=== PATIENT | female | born 2000 | race Caucasian/White ===

== ENCOUNTER 2018-04-12 21:34 | Emergency (ER) | payer BC ==
--- NOTE | 2018-04-12 21:55 | EDPHY ---
General Time Seen by Provider: 04/12/18 21:51 Narrative: CLINICAL IMPRESSION: Intermittent vaginal bleeding after intercourse, intermittent leg spasms ASSESSMENT/PLAN: 18-year-old female presents to the emergency department with complaints of intermittent vaginal bleeding after intercourse as well as intermittent leg spasms x1 year. Patient is scheduled to see an OBGYN for an initial appointment on April 24. She is on continuous control. She had STD testing approximately 3 months ago and has not had a new partner since that time. Pelvic exam today shows thick yellow discharge with mild friability to the cervix without evidence of cervical polyp or obvious dysplasia however this patient has never had a formal Pap smear. No cervical motion tenderness or adnexal discomfort to suggest PID. STD testing pending. Wet prep testing pending. Urine shows no sign of infection and patient is not . No evidence of electrolyte imbalance to explain intermittent leg cramps. Abdomen soft with no focal peritoneal findings. Vital signs stable. Patient will call tomorrow for STD and wet prep test. I encouraged her to keep her OBGYN appointment and encouraged Pap smear. Warning signs for return to emergency department sooner outlined and discharge. DIFFERENTIAL DX: Abdominal pain includes but not limited to urinary tract infection, pyelonephritis, infection, ectopic , salpingitis, TOA, ovarian torsion, ovarian cyst, endometriosis, uterine fibroids, acute appendicitis, acute diverticulitis, small-bowel obstruction, constipation ED PROCEDURES: See lab and/or imaging results below ED COURSE: CHIEF COMPLAINT: Bleeding after intercourse, 1 year of bilateral leg cramping intermittently, "my kidneys hurt", " I think I am getting strep. HPI: 18-year-old female presents to the emergency department with multiple complaints. First patient reports she has had some intermittent vaginal bleeding after intercourse for the last 3 weeks. She also reports 1 year of intermittent leg spasms. She reports having STD tests approximately 3 months ago and has not had a new partner since that time. She is on continuous control and denies . She reports no fever, chills, nausea, vomiting or diarrhea. No UTI symptoms. She is having some yellowish vaginal discharge. No complaints of flank pain. She is also concerned she may be getting strep throat. She is scheduled to see an OBGYN on April 24. She has never had a formal Pap smear PAST MEDICAL HISTORY: See nurse triage note See nurse/triage notes for additional history if applicable Pertinent Past Surgical History: None reported Family History: Noncontributing Social History: See nurse triage note REVIEW OF SYSTEMS: All other systems negative Constitutional: No fever, no chills, appetite change. ENT: Positive for sore throat, congestion, ear pain. Cardiovascular: No chest pain, no palpitations. Respiratory: No cough, no shortness of breath. Gastrointestinal: No abdominal pain, no vomiting, diarrhea. Genitourinary: No hematuria, dysuria, flank pain, pelvic pain, positive for intermittent vaginal bleeding and discharge Musculoskeletal: No back pain, joint swelling, joint pain, myalgias. Skin: No rashes, color change. Neurological: No headache, dizziness, weakness. PHYSICAL EXAM: General Appearance: Alert, oriented, appropriate, cooperative, NAD, well hydrated, non-toxic appearing, VSS, no hypoxia. HEENT: TMs are clear bilaterally no perforation or FB, no injection, no evidence of serous or mucopurulent otitis. Oropharynx clear is no erythema or exudates, no tonsillar hypertrophy or asymmetry. Dentition without abnormality. Neck: Supple, nontender, no lymphadenopathy, no midline pain, FROM, no meningismus. Respiratory: There are no retractions, lungs are clear to auscultation. Cardiac: Regular rate and rhythm, no murmurs or gallops. Gastrointestinal: Abdomen is soft, nontender, bowel sounds normal, no masses/ hernia, no rigidity, guarding or focal peritoneal findings. : Copious yellow discharge noted in vaginal canal. No vaginal laceration or cervical laceration. Mild cervical friability versus contusion noted with no active bleeding. No cervical polyp identified. No cervical motion tenderness or adnexal pain or mass. Neurological: [ Alert and oriented x 3 Skin: Warm, dry, no rashes, no nodules on palpation. MEDICAL DECISION MAKING: Patient was seen independently. Secondary supervising physician at time of evaluation was Dr. Parrish. Diagnosis: Intermittent vaginal bleeding, intermittent leg cramps. New, requires workup Summary: See Assessment and Plan for summary of ED visit Clinical lab tests: ordered / reviewed. Independent visualization of images, tracing, or specimens: None ordered. Patient Progress: Stable for discharge. - History Smoking Status: Never smoked - Objective Vital Signs: Initial Vital Signs Temperature (C) 36.7 C 04/12/18 21:38 Heart Rate 99 04/12/18 21:38 Respiratory Rate 18 04/12/18 21:38 Blood Pressure 130/80 H 04/12/18 21:38 O2 Sat (%) 97 04/12/18 21:38 O2 Delivery Mode Room Air Allergies/Adverse Reactions: divalproex sodium [From Depakote] Allergy (Verified 04/12/18 21:42) risperidone [From Risperdal] Allergy (Verified 04/12/18 21:42) Sulfa (Sulfonamide Antibiotics) Allergy (Verified 04/12/18 21:42) ziprasidone [From Geodon] Allergy (Verified 04/12/18 21:42) Home Medications: Medication Instructions Recorded Albuterol Hfa Anes Only [Proair 2 puffs IH QID 04/12/18 Hfa Icu (*)] Laboratory Results: 04/12/18 04/12/18 04/12/18 23:20 23:20 23:18 POC Hgb 14.6 gm/dL gm/dL (12.6-16.3) POC Hct 43 % % (38-47) POC Sodium 140 mEq/L mEq/L (135-145) POC Potassium 3.7 mEq/L mEq/L (3.3-5.0) POC Chloride 104 mEq/L mEq/L (97-110) POC Total CO2 21 mEq/L L mEq/L (22-31) POC BUN 9 mg/dL mg/dL (7-23) POC Creatinine 0.6 mg/dL mg/dL (0.6-1.0) POC Glucose 120 mg/dL H mg/dL (70-100) Urine Color Urine Appearance Urine pH Ur Specific Thelma Urine Protein Urine Ketones Urine Blood Urine Nitrate Urine Bilirubin Urine Urobilinogen Ur Leukocyte Esterase Urine Glucose Urine Test Trichomonas (Wet Prep) RARE WBC H C.trachomatis RNA (TMA) Pending 04/12/18 04/12/18 22:15 22:15 POC Hgb POC Hct POC Sodium POC Potassium POC Chloride POC Total CO2 POC BUN POC Creatinine POC Glucose Urine Color YELLOW Urine Appearance CLEAR Urine pH 6.0 (5.0-7.5) Ur Specific Thelma 1.019 (1.002-1.030) Urine Protein NEGATIVE (NEGATIVE) Urine Ketones NEGATIVE (NEGATIVE) Urine Blood NEGATIVE (NEGATIVE) Urine Nitrate NEGATIVE (NEGATIVE) Urine Bilirubin NEGATIVE (NEGATIVE) Urine Urobilinogen NEGATIVE EU EU (0.2-1.0) Ur Leukocyte Esterase NEGATIVE (NEGATIVE) Urine Glucose NEGATIVE (NEGATIVE) Urine Test NEGATIVE Trichomonas (Wet Prep) C.trachomatis RNA (TMA) Point of Care Test Results: Chemistry 04/12/18 23:18 POC Sodium 140 mEq/L mEq/L (135-145) POC Potassium 3.7 mEq/L mEq/L (3.3-5.0) POC Chloride 104 mEq/L mEq/L (97-110) POC Total CO2 21 mEq/L L mEq/L (22-31) POC BUN 9 mg/dL mg/dL (7-23) POC Creatinine 0.6 mg/dL mg/dL (0.6-1.0) POC Glucose 120 mg/dL H mg/dL (70-100) ISTAT H&H 04/12/18 23:18 POC Hgb 14.6 gm/dL gm/dL (12.6-16.3) POC Hct 43 % % (38-47) Departure - Departure Disposition: Home, Routine, Self-Care Clinical Impression: Vaginal bleeding, Leg cramping Condition: Good Instructions: Dysfunctional Uterine Bleeding (ED) Additional Instructions: DISCHARGE INSTRUCTIONS FROM YOUR DOCTOR Thank you for visiting our emergency department today. You were treated by a physician restaurant assistant manager today and your case was reviewed with our ED Attending physician. Please keep in mind that discharge from the emergency department does not mean that there is nothing wrong - it simply means that we have not identified an emergency condition that requires further evaluation or treatment in the hospital. You should always plan to follow up with primary care for re- evaluation of your condition in the next 2-3 days. If you have been referred to a specialist, please call as soon as possible (today or tomorrow) to schedule your follow up appointment at the appropriate time. URINE DID NOT APPEAR INFECTED. URINE WAS NEGATIVE. WET PREP AND STD TESTS ARE NOT AVAILABLE THIS EVENING, PLEASE CALL TOMORROW FOR RESULTS. PLEASE KEEP YOUR APPOINTMENT THIS WEEK WITH OBGYN. YOU NEED TO HAVE A FORMAL PAP SMEAR. LAB WORK WAS REASSURING WITH NO ELECTROLYTE IMBALANCE. PLEASE CONSIDER TAKING A MULTI-VITAMIN DAILY AND STAY VERY WELL HYDRATED. RETURN TO THE EMERGENCY DEPARTMENT FOR SEVERE LOWER ABDOMINAL PAIN, FEVER, CHILLS, NAUSEA , VOMITING, OR ANY OTHER CONCERNS. People present with illnesses and injuries in different ways, and it is always possible that we have missed something. You may always return for re-evaluation if symptoms worsen or if they are not improving or if you develop new/different symptoms. Again, thank you for choosing our emergency department. We hope that you feel better. Referrals: NONE *PRIMARY CARE P,. [Primary Care Provider] - As per Instructions Adriana Alcaraz DO [Doctor of Osteopathy] - As per Instructions
[2018-04-12 23:51] VITALS: BP 100/74
== END 2018-04-12 23:51 | disposition home or self-care (01) ==
DX: N93.0 Postcoital and contact bleeding (principal); R25.2 Cramp and spasm
CPT/HCPCS: 82435-PO; 82565-PO; 82947-PO; 84132-PO; 84295-PO; 84520-PO; 85014-ER

== ENCOUNTER 2018-06-26 09:51 | Emergency (ER) | payer BC ==
[2018-06-26] MEDS ORDERED: NS 1,000 ML IV ONE (10:17)
--- NOTE | 2018-06-26 10:22 | EDPHY ---
General - History Smoking Status: Current every day smoker Time Seen by Provider: 06/26/18 10:02 Narrative: CLINICAL IMPRESSION: Urinary tract infection, hematuria ASSESSMENT/PLAN: 18-year-old female presents to the emergency department with 1 week of intermittent dysuria, bilateral flank pain and nausea and vomiting. Clinically , patient does not appear severely dehydrated, abdomen is soft without focal peritoneal findings. Urine does show hematuria and trace bacteriuria with no pyuria. Urine culture was apparently ordered by Urgent Care 2 days ago and repeat culture was not obtained today. Labs are otherwise reassuring, with mild leukocytosis, no renal insufficiency, electrolyte imbalance or metabolic disturbance. Patient was changed from Augmentin which was prescribed by Urgent Care to Keflex. She was feeling better after a L of IV fluids and antiemetics. She was able to keep water down. I encouraged PCP follow-up for repeat urine studies to ensure resolution of infection and hematuria. Low threshold for return to ED sooner as discussed in person and discharge papers. DIFFERENTIAL DX: Abdominal pain includes but not limited to urinary tract infection, pyelonephritis, infection, ectopic , salpingitis, TOA, ovarian torsion, ovarian cyst, endometriosis, uterine fibroids, acute appendicitis, acute diverticulitis, small-bowel obstruction, constipation, dehydration ED PROCEDURES: See lab and/or imaging results below ED COURSE: Seen and evaluated 10:15. Plan for IV, fluid bolus and labs and urine studies 11:30 a.m.: Labs reviewed with patient. Vital stable, afebrile. No signs of urosepsis. Low suspicion for pyelonephritis. Will change to cephalexin. Initial dose given in the ED, prescription provided. Strongly emphasized importance of PCP follow-up and repeat urine studies to ensure clearance of hematuria. Patient understands this. PCP referral given. CHIEF COMPLAINT: Pyelonephritis, nausea vomiting abdominal pain HPI: 18-year-old female presents to the emergency department with 1 week of intermittent dysuria, urgency, bilateral flank pain, intermittent nausea, vomiting diarrhea and generalized lower abdominal pain. Patient reports she was seen at [facility] yesterday in [place], stated according to urine studies that she had pyelonephritis and was started on Augmentin. She took 1 dose of this. She reports tactile fevers in the middle the night, nausea with 1 episode of vomiting this morning, and persistent generalized abdominal discomfort and flank pain. She admits that she always has some flank pain and does not drink much water but has been trying to drink more water since her diagnosis. She is sexually active, on control, compliant with this, and denies any discharge or . No concern for STDs. No upper abdominal pain or hematemesis. No history of chronic UTI or pyelonephritis. PAST MEDICAL HISTORY: Intermittent asthma See nurse/triage notes for additional history if applicable Pertinent Past Surgical History: Cholecystectomy Significant other at bedside REVIEW OF SYSTEMS: All other systems negative Constitutional: Positive for subjective fever, no chills, positive for appetite change.] Cardiovascular: No chest pain, no palpitations. Respiratory: No cough, no shortness of breath. Gastrointestinal: Positive for generalized lower abdominal pain, nausea, vomiting, diarrhea.] Genitourinary: No hematuria, positive for dysuria, positive for bilateral flank pain, denies pelvic pain PHYSICAL EXAM: General Appearance: Alert, oriented, appropriate, cooperative, very thin, lying comfortably in the bed, NAD, well hydrated, non-toxic appearing, VSS, no hypoxia. Afebrile HEENT: Oropharynx clear is no erythema or exudates, no tonsillar hypertrophy or asymmetry. Moist mucous membranes, no evidence of dehydration Respiratory: There are no retractions, lungs are clear to auscultation. Cardiac: Regular rate and rhythm, no murmurs or gallops. Gastrointestinal: Abdomen is soft, mild generalized lower abdominal discomfort to palpation, bowel sounds normal, no masses/hernia, no rigidity, guarding or focal peritoneal findings. exam declined Neurological: [ Alert and oriented x 3 Skin: Warm, dry, no rashes, no nodules on palpation. MEDICAL DECISION MAKING: Patient was seen independently. Secondary supervising physician at time of evaluation was Dr. Pina. Diagnosis: Urinary tract infection, hematuria. New, requires workup Summary: See Assessment and Plan for summary of ED visit Clinical lab tests: ordered / reviewed. Patient Progress: Stable for discharge . (Sigifredo Carmichael) Medical Decision Making: I did not see this patient while she was in the emergency department. However her care was discussed with the PA while the patient was in the department. I agree with treatment plan and management (Sai Pina) - Objective Vital Signs: Initial Vital Signs Temperature (C) 36.6 C 06/26/18 09:55 Heart Rate 94 06/26/18 09:55 Respiratory Rate 16 06/26/18 09:55 Blood Pressure 122/70 H 06/26/18 09:55 O2 Sat (%) 97 06/26/18 09:55 O2 Delivery Mode Room Air Allergies/Adverse Reactions: divalproex sodium [From Depakote] Allergy (Verified 06/26/18 09:54) doxycycline Allergy (Verified 06/26/18 09:54) risperidone [From Risperdal] Allergy (Verified 06/26/18 09:54) Sulfa (Sulfonamide Antibiotics) Allergy (Verified 06/26/18 09:54) ziprasidone [From Geodon] Allergy (Verified 06/26/18 09:54) Home Medications: Medication Instructions Recorded Albuterol Hfa Anes Only [Proair 2 puffs IH QID 04/12/18 Hfa Icu (*)] Augmentin 200 MG/5 ML (*) 06/26/18 Bcp 06/26/18 Cephalexin [Keflex (*)] 500 mg PO BID #10 cap 06/26/18 Zofran 06/26/18 Laboratory Results: Laboratory Results 06/26/18 10:45 06/26/18 10:45 Medications Given: Discontinued Medications Cephalexin HCl (Keflex) 500 mg PO EDNOW ONE PRN Reason: Protocol Stop: 06/26/18 11:35 Last Admin: 06/26/18 11:59 Dose: 500 mg Sodium Chloride (Ns) 1,000 mls @ 0 mls/hr IV EDNOW ONE; Wide Open PRN Reason: Protocol Stop: 06/26/18 10:18 Last Admin: 06/26/18 10:54 Dose: 1,000 mls Ondansetron HCl (Zofran) 4 mg IVP EDNOW ONE Stop: 06/26/18 11:30 Last Admin: 06/26/18 11:39 Dose: 4 mg Departure - Departure Disposition: Home, Routine, Self-Care Clinical Impression: Urinary tract infection Condition: Good Instructions: Urinary Tract Infection in Women (ED) Additional Instructions: DISCHARGE INSTRUCTIONS FROM YOUR DOCTOR Thank you for visiting our emergency department today. You were treated by a physician phlebotomy lab assistant today and your case was reviewed with our ED Attending physician. Please keep in mind that discharge from the emergency department does not mean that there is nothing wrong - it simply means that we have not identified an emergency condition that requires further evaluation or treatment in the hospital. You should always plan to follow up with primary care for re- evaluation of your condition in the next 2-3 days. If you have been referred to a specialist, please call as soon as possible (today or tomorrow) to schedule your follow up appointment at the appropriate time. DIAGNOSTIC WORKUP IN THE EMERGENCY DEPARTMENT INCLUDED LAB AND URINE STUDIES. WE DID NOT SEND A URINE CULTURE BASED ON THE FACT THAT URGENT CARE DID SO 2 DAYS AGO. PLEASE TOUCH BASE WITH THEM FOR RESULTS. YOU DO APPEAR TO HAVE A BLADDER INFECTION ALTHOUGH I DO NOT BELIEVE YOU HAVE PYELONEPHRITIS. I CHANGED ANTIBIOTICS TO KEFLEX, INITIAL DOSE GIVEN IN THE EMERGENCY DEPARTMENT, PRESCRIPTION PROVIDED. IT IS VERY IMPORTANT TO FOLLOW UP WITH A PRIMARY CARE PROVIDER TO RECHECK YOUR URINE OUTSIDE OF A TO ENSURE THAT BLOOD HAS CLEARED. PLEASE RETURN TO THE EMERGENCY DEPARTMENT SOONER FOR DOCUMENTED FEVERS , PERSISTENT NAUSEA AND VOMITING, WORSENING ABDOMINAL PAIN OR FLANK PAIN, INABILITY TO URINATE, OR ANY OTHER CONCERNS. People present with illnesses and injuries in different ways, and it is always possible that we have missed something. You may always return for re-evaluation if symptoms worsen or if they are not improving or if you develop new/different symptoms. Again, thank you for choosing our emergency department. We hope that you feel better. Referrals: NONE *PRIMARY CARE P,. [Primary Care Provider] - As per Instructions Kentrell Damian MD [Medical Doctor] - 5-7 days, if not improved Stand Alone Forms: Work Excuse Prescriptions: Cephalexin [Keflex (*)] 500 mg PO BID #10 cap
[2018-06-26 11:08] LABS: PLATELET COUNT 222 10^3/uL (150-400)
[2018-06-26] MEDS ORDERED: ONDANSETRON 4 MG/2 ML VIAL IVP ONE (11:29)
[2018-06-26] MEDS ORDERED: CEPHALEXIN 500 MG CAP PO ONE (11:34)
[2018-06-26 12:00] VITALS: BP 107/77
== END 2018-06-26 12:01 | disposition home or self-care (01) ==
DX: J06.9 Acute upper respiratory infection, unspecified (principal); R31.9 Hematuria, unspecified; E86.9 Volume depletion, unspecified
CPT/HCPCS: 96374; J2405